=== PATIENT | male | born 1985 | race Caucasian/White ===

== ENCOUNTER 2018-06-21 13:45 | Emergency (ER) | payer OTHER, SELFPAY ==
--- NOTE | 2018-06-21 13:54 | PC.NURSE ---
In bathroom when called for triage
[2018-06-21 13:55] VITALS: BP 126/72; PULSE 65; RESP 97; TEMP 36.8; BMI 27.1
--- NOTE | 2018-06-21 14:21 | ED_ITS ---
HPI - Headache <ANA Cormier - Last Filed: 06/21/18 19:16> General Chief Complaint: Headache Stated Complaint: Pain in head for month Time Seen by Provider: 06/21/18 14:02 Source: patient Mode of arrival: ambulatory Limitations: no limitations History of Present Illness HPI Narrative: Patient is a 33-year-old male with recent diagnosis of migraines who presents with a chief complaint of headache. he states he saw his PCP for increasing headaches over the past month. He was started on Maxalt as needed by his PCP. He presents with a headache. he complains of slight nausea. He denies any vomiting fevers or diarrhea. He denies any abdominal pain shortness of breath or chest pain. he took 400 mg of ibuprofen yesterday for his headache and has not taken anything since. He denies any thunderclap sensation. He states this is headache starts in the back of his head and goes up and over towards the scalp. He complains of pain on the right side of his head. Review of Systems <ANA Cormier - Last Filed: 06/21/18 19:16> Review of Systems GENERAL: Denies chills, fatigue, malaise, fever, sweats. HEENT: Denies sinus pain, ear pain, sore throat, difficulty swallowing, dizziness. RESPIRATORY: Denies dyspnea, cough, wheezing, hemoptysis, sputum. CARDIOVASCULAR: Denies chest pain, palpitations, orthopnea, edema, GASTROINTESTINAL: Denies nausea, vomiting, abdominal pain, diarrhea, constipation, melena. : Denies dysuria, frequency, incontinence, hematuria, urinary retention. MUSCULOSKELETAL: denies weakness, joint pain, or bony pain SKIN: Denies rash, skin lesions, or other NEUROLOGIC: See HPI PSYCHIATRIC: No concerning psychosocial issues. 12 point review of systems is negative except for those stated above PFSH <ANA Cormier - Last Filed: 06/21/18 19:16> Social History Smoking Status: Former smoker Social History Smoking Status: Former smoker Exam <ANA Cormier - Last Filed: 06/21/18 19:16> Narrative Exam Narrative: GENERAL: This is a well-nourished, well-developed patient, in no acute distress HEAD: Atraumatic. Normocephalic. No temporal or scalp tenderness. EYES: Pupils equal round and reactive. Extraocular motions intact. No scleral icterus. No injection or drainage. no nystagmus. ENT: Nose without bleeding, purulent drainage or septal hematoma. Throat without erythema, tonsillar hypertrophy or exudate. Uvula midline. Airway patent. NECK: Trachea midline. No JVD or lymphadenopathy. Supple, nontender, no meningeal signs. CARDIOVASCULAR: Regular rate and rhythm without murmurs, gallops, or rubs. RESPIRATORY: Clear to auscultation. Breath sounds equal bilaterally. No wheezes, rales, or rhonchi. GASTROINTESTINAL: Abdomen soft, non-tender, nondistended. No hepato- splenomegaly, or palpable masses. No guarding. EXTREMITIES: No clubbing, cyanosis, or edema. No joint tenderness, effusion, or edema noted. BACK: Nontender without deformity or crepitance. No flank tenderness. NEURO: AOx3. GCS 15. Cranial nerves grossly intact. cordero heel intact. Finger-nose test intact. negative Romberg. SKIN: No rash or erythema. Initial Vital Signs Initial Vital Signs: Vital Signs Temperature 98.3 F 06/21/18 13:55 Pulse Rate 65 06/21/18 13:55 Respiratory Rate 97 H 06/21/18 13:55 Blood Pressure 126/72 06/21/18 13:55 <Jovana Rico MD - Last Filed: 06/22/18 08:17> Initial Vital Signs Initial Vital Signs: Vital Signs Temperature 98.3 F 06/21/18 13:55 Pulse Rate 65 06/21/18 13:55 Respiratory Rate 97 H 06/21/18 13:55 Blood Pressure 126/72 06/21/18 13:55 Course <ANA Cormier - Last Filed: 06/21/18 19:16> Orders Ordered: Discontinued Medications Dexamethasone (Decadron) 10 mg IV NOW ONE Stop: 06/21/18 14:14 Last Admin: 06/21/18 14:25 Dose: 10 mg Diphenhydramine HCl (Benadryl) 25 mg IV NOW ONE Stop: 06/21/18 14:14 Last Admin: 06/21/18 14:25 Dose: 25 mg Sodium Chloride (Normal Saline 0.9%) 1,000 mls @ 1,000 mls/hr IV BOLUS ONE Stop: 06/21/18 15:12 Last Infusion: 06/21/18 15:34 Dose: 0 mls/hr Admin: 06/21/18 14:25 Dose: 1,000 mls/hr Metoclopramide HCl (Reglan) 10 mg IV NOW ONE Stop: 06/21/18 14:14 Last Admin: 06/21/18 14:25 Dose: 10 mg Vital Signs - 8 hr 06/21/18 13:55 06/21/18 14:54 06/21/18 16:40 Temperature 98.3 F Pulse Rate 65 68 55 L Respiratory Rate 97 H 16 14 Blood Pressure 126/72 117/63 Blood Pressure [Right Arm] 107/66 Pulse Oximetry 98 98 <Jovana Rico MD - Last Filed: 06/22/18 08:17> Orders Ordered: Discontinued Medications Dexamethasone (Decadron) 10 mg IV NOW ONE Stop: 06/21/18 14:14 Last Admin: 06/21/18 14:25 Dose: 10 mg Diphenhydramine HCl (Benadryl) 25 mg IV NOW ONE Stop: 06/21/18 14:14 Last Admin: 06/21/18 14:25 Dose: 25 mg Sodium Chloride (Normal Saline 0.9%) 1,000 mls @ 1,000 mls/hr IV BOLUS ONE Stop: 06/21/18 15:12 Last Infusion: 06/21/18 15:34 Dose: 0 mls/hr Admin: 06/21/18 14:25 Dose: 1,000 mls/hr Metoclopramide HCl (Reglan) 10 mg IV NOW ONE Stop: 06/21/18 14:14 Last Admin: 06/21/18 14:25 Dose: 10 mg Vital Signs - 8 hr 06/21/18 13:55 06/21/18 14:54 06/21/18 16:40 Temperature 98.3 F Pulse Rate 65 68 55 L Respiratory Rate 97 H 16 14 Blood Pressure 126/72 117/63 Blood Pressure [Right Arm] 107/66 Pulse Oximetry 98 98 MDM - Headache <ANA Cormier - Last Filed: 06/21/18 19:16> MDM Narrative Medical decision making narrative: The patient is a 33-year-old male who presented with chief complaint of headache. He has recent migraine diagnosis, declines thunderclap sensation and is neurologically intact. he was treated with a headache cocktail, voiding Toradol given his allergy to Aleve. He stated improvement. Requested to go home and sleep. I discussed it at length that he needs to follow up with his primary care provider, suggested using his medication that was given by his PCP. Discussed return precautions including confusion, altered mental status or acute concerns. Discharge Plan Departure Patient Disposition: Home Clinical Impression: Headache Qualifiers: Headache type: unspecified Headache chronicity pattern: unspecified pattern Intractability: not intractable Qualified Code(s): R51 - Headache Discharge Date/Time: 06/21/18 16:40 Interventions: ED Discharge Assessment Last Done: 06/21/18 16:40 Instructions: DI for Headache Activity Restrictions/Additional Instructions: You responded well to her headache medications today. Please follow up with primary care physician. Please come back to the emergency department for any acute concerns such as confusion, altered mental status, concern of chest pain or heart attack. Please go home and rest. Plan on sleeping the rest of the day. Please follow up with primary care provider tomorrow or shortly thereafter. Referrals: Hayden Bettencourt PA-C [Primary Care Provider] -
[2018-06-21] MEDS: diphenhydrAMINE 50 MG/ML VIAL 25 MG IV (14:25)
[2018-06-21] MEDS: METOCLOPRAMIDE 10 MG/2 ML INJ IV (14:25)
[2018-06-21] MEDS: DEXAMETHASONE 10 MG/ML VIAL IV (14:25)
[2018-06-21] MEDS: SODIUM CHLORIDE 0.9% 1,000 ML 1000 ML IV (14:25)
[2018-06-21 14:54] VITALS: BP 107/66; PULSE 68; RESP 16; O2SAT 98
[2018-06-21 16:40] VITALS: BP 117/63; PULSE 55; RESP 14; O2SAT 98
== END 2018-06-21 16:40 | disposition home or self-care (01) ==
PROVIDERS: Emergency Provider Nurse Practitioner Family; PCP Physician Assistant
DX: R51 Headache (principal)
CPT/HCPCS: 96361; 96374; 96375; 99283; 99284; J1100; J1200; J2765

== ENCOUNTER → 2018-10-17 16:07 | Outpatient (CLI) | payer OTHER, SELFPAY ==
--- NOTE | 2018-10-17 16:08 | DI.MRI.S_ITS ---
PROCEDURE: MR HEAD/BRAIN WO CON INDICATIONS: Migraine TECHNIQUE: Noncontrast axial T1 spin echo, axial T2 fast spin echo, sagittal and axial FLAIR, coronal T2 fast spin echo, axial gradient echo, axial diffusion and ADC through the brain. COMPARISON: None. FINDINGS: Image quality: Excellent. CSF Spaces: Basal cisterns are patent. No extra-axial fluid collections. Ventricles are normal in size and shape. Brain: No intracranial masses or hemorrhage. Burr/white matter interface is normal. Brainstem appears normal. Diffusion-weighted images demonstrate no acute ischemic insult. No chronic ischemic insults. Normal intravascular flow voids are present. Skull and face: Calvarium has normal marrow signal. Orbits appear normal. Sinuses: Sinuses and mastoids are clear. IMPRESSION: 1. No acute intracranial disease process 2. No abnormal intracranial mass 3. No abnormal intracranial signal. Dictated by: Therese Johns MD, PhD on 10/17/2018 at 17:24 Approved by: Therese Johns MD, PhD on 10/17/2018 at 17:26
== END ==
PROVIDERS: PCP Physician Assistant; Visit Provider Internal Medicine
DX: G43.909 Migraine, unspecified, not intractable, without status migrainosus (principal)
CPT/HCPCS: 70551